=== PATIENT | male | born 1985 | race Caucasian/White ===

== ENCOUNTER 2020-05-07 08:09 | Outpatient (CLI) | payer OTHER ==
--- NOTE | 2020-05-07 11:09 | MRI Report ---
PROCEDURE: Lumbar Spine W/O INDICATIONS: LOW BACK PAIN TECHNIQUE: Noncontrast sagittal T1 spin echo and T2 fast echo, sagittal STIR, axial T1 and T2 fast spin echo thr ough the lumbar spine. Coronal T1 and STIR sequences through the sacrum. COMPARISON: None. FINDINGS: Image quality: Excellent. Alignment and Curvature: No plain films are available for comparison. Thus, for numbering purposes, 5 lumbar type vertebral bodies will be presumed for the current report. This should be confirmed with plain film correlation prior to any lumbar spinal intervention. There is loss of normal lumbar lordo sis. There is mild grade 1 retrolisthesis of L5 on S1. Bone Marrow: Marrow is of normal overall signal. No acute vertebral body compression fractures. Th ere is mild reactive signal within the endplates adjacent to the L5-S1 intervertebral disc. The sacru m and sacroiliac joints are grossly unremarkable. Spinal Cord: Conus medullaris terminates at the mid L1 level. Visualized cord demonstrates normal s ignal and size. Paraspinous Soft Tissues: No paravertebral masses. Retroaortic left renal vein. T12-L1: Normal in appearance. L1-L2: Mild disc desiccation. No significant canal, nor foraminal stenosis. L2-L3: Mild facet and ligament flavum hypertrophy. Mild epidural lipomatosis. Mild canal stenosis. No foraminal stenosis. L3-L4: Mild facet and ligament flavum hypertrophy. No significant canal, nor foraminal stenosis. L4-L5: Mild facet and ligament flavum hypertrophy. No significant canal, nor foraminal stenosis. L5-S1: Moderate disc desiccation. Mild disc height loss. Mild diffuse disc bulge with superimposed left posterolateral protrusion. Mild bilateral facet hypertrophy. No significant canal stenosis. Mode rate subarticular foraminal stenosis bilaterally. IMPRESSION: 1. Multilevel degenerative disc and facet disease, in addition to epidural lipomatosis and ligamentum flavum hypertrophy. 2. Mild multilevel canal stenoses. 3. Multilevel foraminal stenoses, worst at L5-S1 where there are moderate foraminal stenoses present. 4. Five lumbar type vertebral bodies were presumed for the purposes of the current report. Correlati on with plainfilms for numbering purposes is recommended prior to any lumbar spinal intervention. Reviewed by: Dhiraj Arreguin MD on 05/07/2020 10:07 AM [place] Approved by: Dhiraj Arreguin MD on 05/07/2020 10:07 AM [place] Station ID: [id number]
== END 2020-05-07 08:10 | disposition home or self-care (01) ==
LOC: DI 08:09
PROVIDERS: ATTEND Family Medicine
DX: M51.36 Other intervertebral disc degeneration, lumbar region (principal); M51.37 Other intervertebral disc degeneration, lumbosacral region; M51.27 Other intervertebral disc displacement, lumbosacral region; M48.061 Spinal stenosis, lumbar region without neurogenic claudication; M48.07 Spinal stenosis, lumbosacral region
CPT/HCPCS: 72148

== ENCOUNTER 2021-03-30 01:31 | Emergency (ER) | payer OTHER ==
[2021-03-30] MEDS ORDERED: DEXAMETHASONE 10 MG/ML VIAL PO STA (02:29)
[2021-03-30] MEDS ORDERED: CHERRY SYRUP 10 ML UDC PO ONE (02:29)
--- NOTE | 2021-03-30 02:34 | ED Physician Documentation ---
History of Present Illness - Stated complaint Stated Complaint: FOREIGN OBJ IN THROAT - Chief complaint Chief Complaint: Heent - History obtained from History obtained from: Patient - History of Present Illness Timing: Enter time (1800), Yesterday - Additonal information Additional information: 36-year-old male was on the telephone talking when he was eating some stirfry and he felt like he got something caught down his esophagus and he has had some coughing and foreign body sensation since. He said this happened to him a number of times previously it usually clears up within 1 or 2 hours. He still has sensation of there is something caught he is having some wheezing periodically that he is feeling in the upper airway. Review of Systems Constitutional: denies: Fever Eyes: denies: Decreased vision Ears: denies: Ear pain Nose: denies: Congestion Throat: denies: Sore throat Cardiac: denies: Chest pain / pressure, Palpitations Respiratory: reports: Wheezing. denies: Dyspnea, Cough GI: denies: Abdominal Pain, Nausea, Vomiting PD PAST MEDICAL HISTORY - Past Medical History Past Medical History: Yes Cardiovascular: None Respiratory: None Endocrine/Autoimmune: None GI: None : None HEENT: None Musculoskeletal: Chronic back pain Derm: None - Past Surgical History Past Surgical History: Yes HEENT: Myringotomy (tubes), Tonsil/Adenoidectomy, Other - Present Medications Home Medications: Ambulatory Orders Medication Instructions Recorded Confirmed No Known Home Medications 03/30/21 03/30/21 - Allergies Allergies/Adverse Reactions: Allergies Allergy/AdvReac Type Severity Reaction Status Date / Time No Known Drug Allergies Allergy Verified 07/25/16 23:33 - Social History Does the pt smoke?: No Smoking Status: Never smoker Does the pt drink ETOH?: Yes Does the pt have substance abuse?: No - Immunizations Immunizations are current?: Yes - POLST Patient has POLST: No PD ED PE NORMAL - Vitals Vital signs reviewed: Yes (Hypertensive mild) - General General: Alert and oriented X 3, No acute distress, Well developed/nourished - HEENT HEENT: Atraumatic, PERRL, EOMI, Pharynx benign, Other (There is more tissue to the left soft pallet. 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 No foreign body identified.), EMP read indepedently, See rad report PD MEDICAL DECISION MAKING - ED course Complexity details: reviewed results, re-evaluated patient, considered differential, d/w patient ED course: 36-year-old male with a foreign body sensation in his esophagus is able to swallow liquids without difficulty he does have some coughing and wheezing associated with this foreign body sensation and he is given molecular shrink ray with improvement in his symptoms. He feels well and feels that he will be able to sleep now. Departure - Departure Disposition: 01 Home, Self Care Clinical Impression: Sensation of foreign body in esophagus Condition: Stable Instructions: ED Foreign Body Esophageal Rslv Follow-Up: ARON Oconnor [Provider Group]
[2021-03-30 03:55] VITALS: BP 128/81
--- NOTE | 2021-03-30 10:43 | XRAY Report ---
PROCEDURE: Neck Soft Tissue INDICATIONS: FB sensation TECHNIQUE: 2 views of the neck were acquired. COMPARISON: None FINDINGS: Airway: The airway appears patent. Soft tissues: Prevertebral soft tissues are normal in thickness. The epiglottis and aryepiglottic f olds appear normal. No soft tissue gas. Bones: No suspicious bony lesions. Visualized cervical spine demonstrates cervical straightening. IMPRESSION: No radiopaque foreign body. Reviewed by: Ariella Hoyos MD on 03/30/2021 10:42 AM PDT Approved by: Ariella Hoyos MD on 03/30/2021 10:42 AM PDT Station ID: [id number]
== END 2021-03-30 04:03 | disposition home or self-care (01) ==
LOC: ED 01:31
DX: R09.89 Other specified symptoms and signs involving the circulatory and respiratory systems (principal); R06.2 Wheezing
CPT/HCPCS: 70360; 99283; A9270